=== PATIENT | female | born 2000 | race Caucasian/White ===

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

== ENCOUNTER 2025-01-31 22:00 | Emergency (ER) | payer BC, MEDICAID ==
[2025-01-31 22:15] VITALS: BP 139/69; PULSE 104
== END 2025-01-31 22:50 | disposition home or self-care (01) ==
LOC: FB.ED 22:00
DX: S93.601A Unspecified sprain of right foot, initial encounter (principal); E11.9 Type 2 diabetes mellitus without complications; Z87.891 Personal history of nicotine dependence; Z88.8 Allergy status to other drugs, medicaments and biological substances; Z91.030 Bee allergy status; Z79.899 Other long term (current) drug therapy; W10.9XXA Fall (on) (from) unspecified stairs and steps, initial encounter
CPT/HCPCS: 73630-RT; 99283